=== PATIENT | female | born 1990 | race Caucasian/White ===

== ENCOUNTER 2024-12-15 17:13 | Inpatient (IN) | payer MEDICAID ==
[~2024-12-15] VITALS: Ht 170.2 cm; Wt 79.7 kg
--- NOTE | 2024-12-15 17:31 | Physician Documentation ---
History of Present Illness Chief Complaint: Abdominal Pain Stated Complaint: COLITIS COMPLICATIONS HPI 34-year-old female who presents due to concerns for an ulcerative colitis flare. She reports that she was diagnosed in [place], but then she moved here. She just last week got established with a primary care and has been referred to GI specialist Dr. Gonzalez. She is waiting for that appointment. In [place], her ulcerative colitis was treated with Remicade infusions, but she has not had those for 15 weeks. She just completed a course of steroids in early October. She denies chills or fever, notes lower abdominal pain, nausea Medication Reconciliation Allergies: Coded Allergies: No Known Allergies (Unverified , 12/15/24) Miscellaneous Medications Home Med List (No Home Medications), (Reported) Review of Systems ROS As stated above in the HPI, otherwise all systems are reviewed and negative. Constitutional: Denies: fever Gastrointestinal: Reports: abdominal pain, diarrhea, rectal bleeding Physical Exam Vital Signs: Temperature: 97.8, Source: Temporal, Heart Rate: 89, Respiratory Rate: 16, BP: 100/70, Pulse Oximetry: 99, Weight: 79.700 Oxygen Flow Rate: 0 Physical Exam General: Alert, no apparent distress. Neck: Full range of motion. Respiratory: Lungs clear, no respiratory distress. Chest: No accessory muscle use. Cardiovascular: Regular rate and rhythm, no murmurs. Gastrointestinal: Soft, TTP of lower abdomen, nondistended. Bowels sounds present. Extremities: Normal range of motion, no deformity. Neurologic: Oriented x4. Psychiatric: Normal mood and affect. Skin: Normal color, warm and dry. No edema, no ecchymosis. Progress Results/Orders Results/Orders Vital Signs 12/15/24 17:23 Temp 97.8 Pulse 89 Resp 16 B/P (MAP) 100/70 Pulse Ox 99 O2 Flow Rate 0 Consults/PCP Consults/PCP : Additional Comment Consult: I spoke to Dr. Menjivar, GI. She agrees with the admission for initiation of treatment. Consult: I spoke to the internal medicine service, for admission in the hospital Medical Decision Making Additional information obtaine: other Findings Spoke to friend, who is a nurse Differential Dx:Considerations: Appendicitis, Bowel obstruction, Inflammatory BD, Other Additional Comments Most Likely Diagnoses Ulcerative colitis flare/exacerbation: The most likely cause of lower abdominal pain and bloody diarrhea in a patient with known ulcerative colitis who is off infliximab for 15 weeks and recently tapered steroids is a disease flare. Flares are common after withdrawal of biologic or steroid therapy and typically present with bloody diarrhea, abdominal pain, and sometimes nausea, especially when the disease is active or undertreated.[1] Infectious bacterial colitis: Patients with ulcerative colitis are at increased risk for superimposed infectious colitis, particularly from pathogens such as Campylobacter, Salmonella, Shigella, and Shiga toxinproducing E. coli (STEC), all of which can cause bloody diarrhea and abdominal pain. The Infectious Diseases Society of [place] notes that visible blood in stool and abdominal pain are suggestive of these pathogens, even in the absence of fever.[2] Clostridioides difficile colitis: Immunosuppressed patients and those with recent healthcare exposure are at increased risk for C. difficile infection, which can present with watery or bloody diarrhea and abdominal pain. Even without recent antibiotics, C. difficile should be considered in any IBD patient with new or worsening diarrhea.[3] Ischemic colitis: Although less common in young adults, ischemic colitis can present with sudden-onset lower abdominal pain and bloody diarrhea. Risk is increased in patients with underlying vascular disease or hypotension, but IBD patients may be at higher risk due to chronic inflammation.[4] Medication-associated colitis: NSAIDs and antibiotics can cause colitis and bloody diarrhea, but this is less likely without recent use. Most Important Not to Miss Diagnoses Toxic megacolon: This is a life-threatening complication of severe ulcerative colitis, characterized by colonic distension and systemic toxicity. Although the absence of fever and chills makes this less likely, it must be ruled out with abdominal imaging and close monitoring for signs of toxicity (tachycardia, hypotension, altered mental status).[5] Colonic perforation with peritonitis: Perforation can occur in severe colitis or toxic megacolon. Signs include increasing abdominal pain, distension, peritonism, and systemic instability. CT imaging is essential if there is any clinical suspicion.[6] Assessment The patient presents with abdominal pain and rectal bleeding. She has a history of ulcerative colitis and is currently not on treatment. Her history and exam are all consistent with an ulcerative colitis flare. Her laboratory testing is reassuring, no acute anemia although she does have a mild leukocytosis. She was given IV fluids and nausea medicine. GI team was consulted as above. She will be admitted for initiation of treatment. Departure Impression: Primary Impression: Ulcerative colitis with rectal bleeding Referrals: NO PRIMARY CARE PROVIDER (PCP) Signature Scribe Signature: na Attestation: JAMEY Kelly NP Dec 15, 2024 17:31 ANUP GAMEZ MD Dec 15, 2024 19:26
[2024-12-15 17:49] LABS: MEAN PLATELET VOLUME 8.4 FL (7.4-10.4); RED CELL DISTRIBUTION WIDTH 13.4 % (11.5-14.5)
[2024-12-15] MEDS ORDERED: NO HOME MEDS (17:56)
[2024-12-15 18:04] LABS: CREATININE 0.74 MG/DL (0.40-0.90); TOTAL CARBON DIOXIDE 24.4 MMOL/L (24-32); eCRCL 106 ML/MIN; eGFR > 90 ML/MIN
[2024-12-15] MEDS: normal saline 1000ml 1,000 ML IV ONE ×2 (18:12→19:30)
[2024-12-15 18:35] LABS: LEUKOCYTE ESTERASE ,URINE NEGATIVE (Neg); NITRITES, URINE NEGATIVE (Neg); OCCULT BLOOD,URINE NEGATIVE (Neg); URINE HCG NEGATIVE (NEG)
[2024-12-15 18:36] LABS: UA COLLECTION TYPE CLN CATCH MIDSTREAM
[2024-12-15] MEDS ORDERED: ondansetron 4mg rapidly disintigrating tab PO PRN (19:55)
[2024-12-15] MEDS ORDERED: mag hydrox/Alum hydrox/simeth 30ml oral suspension PO PRN (19:55)
[2024-12-15] MEDS ORDERED: potassium Cl 20 mEq SR tablet PO PRN ×2 (19:55)
[2024-12-15] MEDS ORDERED: magnesium hydroxide 30ml (MOM) UD suspension PO PRN (19:55)
[2024-12-15] MEDS ORDERED: potassium Cl 40MEQ/1/2NS 520ml 520 ML IV PRN (19:55)
[2024-12-15] MEDS ORDERED: magnesium sulf-water 2g/50mL 50 ML IV PRN (19:55)
[2024-12-15] MEDS: normal saline 1000ml 1,000 ML IV SCH (19:55)
[2024-12-15] MEDS ORDERED: magnesium Cl slow-release 64mg tablet PO PRN (19:55)
[2024-12-15] MEDS ORDERED: ondansetron/PF 4mg/2ml inj IV PRN (19:55)
[2024-12-15] MEDS: K and/or MAG REPLACEMENT MC SCH (20:00)
[2024-12-15] MEDS: docusate sod 100mg capsule PO SCH (20:00)
[2024-12-15] MEDS: ondansetron/PF 4mg/2ml inj IV ONE (20:03)
[2024-12-15 20:28] LABS: INR 1.0 INR
[2024-12-15] MEDS: mesalamine 1.2gm ER tablet PO SCH (21:24)
[2024-12-15] MEDS: magnesium sulf-water 4G/100mL 100 ML IV PRN (21:33)
[2024-12-15] MEDS: methylPREDNISolone sod succ/PF 40mg inj. IV SCH (21:59)
[2024-12-15 23:00] VITALS: BP 105/61; PULSE 72; RESP 14; TEMP 97.6; O2SAT 99
[2024-12-15 23:00] LABS: % IRON SATURATION 8 % (11-46)
[2024-12-16] MEDS: heparin, porcine 5000 units/ml vial SQ SCH
--- NOTE | 2024-12-16 00:20 | HISTORY AND PHYSICAL-Residence ---
History & Physical Providers to CC Resident Creating Document: HERMES HOWARD, RES ~ History of Present Illness Reason for Admit\Complaint: Ulcerative Colitis Flare History of Present Illness 34 years old female with past medical history of ulcerative colitis came to ED with symptoms of diarrhea. Patient has a recent diagnosis of ulcerative colitis (August 2024) presents with a flare characterized by 45 daily episodes of loose, bloody stools with associated pus, 5/10 abdominal pain centered around the umbilicus and more prominent in the lower quadrants, intermittent bowel incontinence, and a sensation of incomplete evacuation. She reports a 12 lb unintentional weight loss and severe bilateral hip pain rated 8/10. All other review of systems is negative. She was previously hospitalized for similar symptoms and received Prednisone during hospital course, and Received two doses of infliximab. Upon discharge, she was prescribed oral steroids which later tappered and scheduled for outpatient infliximab infusions every 6 weeks. Her last infusion was on September 06. Since relocating from [place] to [place], she has not received further IBD treatment due to lack of follow-up with a field reporter or PCP. At other facility-CT abdomen and pelvis shows moderate acute colitis, focal fatty infiltration of liver 08/09/2024 - Colonoscopy: Inflammation was found in a continuous and circumferential pattern from rectum to hepatic flexure. 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 She used to smoke 7 cig/day but quit smoking after 2019 She was an Alcoholic and used to drink 10-20 Shots but quit smoking since 2021 She used to smoke marijuana, but quit smoking over an year History of cocaine abuse 4 years ago Patient able to ambulate without any assist ROS Constitutional: Reports: see HPI; Denies: fever Eyes: Reports: no symptoms reported ENT: Reports: no symptoms reported Respiratory: Reports: no symptoms reported Cardiovascular: Reports: no symptoms reported Gastrointestinal: Reports: abdominal pain (Patient reports abdominal pain around the umblicus more pronounced in RLQ), diarrhea (Patient reports 4-5 loose stools + Mixed with Blood+ associated with Incontience ), rectal bleeding (Patient reports Stool mixed with blood and pus ) Genitourinary: Reports: no symptoms reported Female Genitalia: Reports: no reported symptoms Neurological: Reports: no symptoms reported Musculoskeletal: Reports: pain (patient reports HIP pain 8/10 in intensity) Integumentary: Reports: other (redness and Acne all around the mouth) Allergic/Immunologic: Reports: no symptoms reported Hematologic/Lymphatic: Reports: no symptoms reported Endocrine: Reports: no symptoms reported Psychiatric: Reports: no symptoms reported Exam Vitals: Vital Signs Date Time Temp Pulse Resp B/P (MAP) Pulse Ox O2 Delivery O2 Flow Rate FiO2 12/15/24 19:40 98.3 75 103/67 (79) 100 0 12/15/24 17:39 16 General: GENERAL: Awake, alert, oriented. No acute distress. HEENT : Normocephalic, atraumatic, pupils equal and reactive to light, extraocular movements intact, no scleral icterus or conjunctival pallor,oral mucosa moist. NECK: neck is supple, trachea midline, no lymphadenopathy, no thyromegaly, no JV distention RESPIRATORY: Chest expansion equal bilaterally, breath sounds vesicular, no wheezes, or rhonchi. No use of accessory muscles, no tenderness on palpation. CARDIOVASCULAR: S1 and S2 heard, no murmurs, no rubs, or gallops ABDOMEN: Soft,Mild tender on palpation , nondistended, bowel sounds present and normoactive. No organomegaly, no palpable mass, no rebound or guarding NEUROLOGICAL: Alert, oriented, normal memory, speech is normal Cranial nerves II-XII- intact Motor strength 5/5 Sensation-intact in all extremities Reflexes +2 and symmetrical Coordination is intact EXTREMITIES: No Edema, peripheral pulses felt, no deformities Psychiatric:Appropriate mood and affect,No hallucinations or suicidal ideation Diagnostic Data Last Recorded Lab Results: 12/17/24 0350 12/17/24 0350 Diagnostic Data: Laboratory Tests Test 12/15/24 17:42 Prothrombin Time 10.7 SECONDS (9.0-12.0) INR International Normalized Ratio 1.0 INR Coagulation Comments Advance Care Planning Advanced Care plannin - 30 Minutes Additional Plan 34 years old female with past medical history of ulcerative colitis he is currently evaluated for IBD flare Diarrhea with Hematochezia 2/2 Ulcerative colitis flare Patient recently diagnosed with ulcerative colitis. patient reports 5-6 episodes of loose stools with bright red blood and pus in the stools At other facility-CT abdomen and pelvis shows moderate acute colitis, focal fatty infiltration of liver 08/09/2024 - Colonoscopy: Inflammation was found in a continuous and circumferential pattern from rectum to hepatic flexure. 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 Menjivar gastroenterology on Tuesday(12/19/2024). H&H-normal, ESR-normal, CRP-0.52 elevated, lactic acid normal Iron studies-low serum iron, low TIBC, low% saturation Started IV normal saline 100 cc/hour Started mesalamine 2.4 g p.o. daily and IV methylprednisone 60 mg IV daily Consulted field reporter Dr. Menjivar, appreciate recommendations F/p with Stool culture, Occult blood, daily Labs Bilateral hip pain possibly 2/2 enteropathic arthritis Differentials-sacroiliitis, fracture Vitals are stable ESR-normal, CRP elevated, WBC-13.5 Follow up with hip x-ray Code Status: Full DVT prophylaxis: Heparin Analgesia/Sedation: Morphine Line/tube: Peripheral Nutrition: Clear liquid PT: Ordered Prognosis: Guarded Disposition: Patient will be monitored in surgery, gastroenterology consult tomorrow. Hermes Howard PGY1-Internal Medicine Resident Date of Service: Dec 15, 2024 Billing Provider: VERITO LAL MD Addendum Attestation I agree with the residents assessment and plan as below: 34 year old female with recently diagnosed ulcerative colitis now admitted with GIB Plan: start IV steroids GI consult mIVF CCT 56 min using HIPPA compliant A/V technology HERMES HOWARD, RES Dec 16, 2024 00:20 VERITO LAL MD Dec 17, 2024 19:39
[2024-12-16 00:49] LABS: URINE AMPHETAMINE SCREEN NEGATIVE (Neg); URINE BARBITUATE SCREEN NEGATIVE (Neg); URINE BENZODIAZEPINES SCREEN NEGATIVE (Neg); URINE CANNABINOID SCREEN NEGATIVE (Neg); URINE COCAINE SCREEN NEGATIVE (Neg); URINE METHADONE SCREEN NEGATIVE (Neg); URINE OPIATE SCREEN NEGATIVE (Neg); URINE PHENCYCLIDINE SCREEN NEGATIVE (Neg)
--- NOTE | 2024-12-16 04:21 | RADIOLOGY REPORT ---
Procedure: DI HIP,BI,CMPLT(AP PELVIS) 12/15/2024 11:44 PM TECHNIQUE: Single view of the pelvis and 4 total views of the hips were obtained. Indication: HIP pain Comparison: None FINDINGS: Bones: No acute fracture or dislocation. Joint spaces are maintained. Soft tissues: Unremarkable. No radiopaque foreign body. IMPRESSION: 1. No acute osseous abnormality.
[2024-12-16 06:42] VITALS: BP 82/51; PULSE 87; RESP 16; TEMP 98.6; O2SAT 100
[2024-12-16 07:13] LABS: MEAN PLATELET VOLUME 8.7 FL (7.4-10.4); RED CELL DISTRIBUTION WIDTH 13.5 % (11.5-14.5)
[2024-12-16 07:45] LABS: CREATININE 0.52 MG/DL (0.40-0.90); TOTAL CARBON DIOXIDE 22.2 MMOL/L (24-32); eCRCL 151 ML/MIN; eGFR > 90 ML/MIN
[2024-12-16] MEDS: pantoprazole 40MG/NS 100ML BAG 100 ML IV SCH (09:03)
[2024-12-16] MEDS ORDERED: normal saline 500ml IV soln 500 ML IV ONE (09:15)
[2024-12-16] MEDS: normal saline 1000ml 1,000 ML IV ONE (10:03)
[2024-12-16 11:34] VITALS: BP 99/58; PULSE 77; RESP 16; TEMP 98.1; O2SAT 95
[2024-12-16] MEDS: iron sucrose complex injection 300 MG in normal saline 250ml IV soln 250 ML IV SCH (11:46)
--- NOTE | 2024-12-16 13:02 | CONSULTATION REPORT - RESIDENT ---
Consult Providers to CC Resident Creating Document: TESSASANTANAAydinRICKI MCINTOSH History of Present Illness Reason for Admit\Complaint: Acute flare of ulcerative colitis History of Present Illness This is a 34-year-old female with recent diagnosis of ulcerative colitis earlier this year in August when she had symptoms of bloody mucoid diarrhea. The colonoscopy and the biopsy showed inflammation in a continuous and circumferential pattern from rectum to hepatic flexure. Biopsy showed chronic colitis with focal mild neutrophilic cryptitis. She was treated with a combination of infliximab infusion and methylprednisolone during the time of her diagnosis. She was discharged with oral prednisone and infliximab infusion every 6 weeks once the disease was in remission. She has received 3 doses of infliximab till now and could not continue the infusion since she relocated from [place] to [place]. Currently she is having flare of UC with having 4-5 episodes of bloody mucoid stools associated with abdominal pain, 5/10, cramping type, intermittent, in the lower quadrant. She also gives history of significant weight loss. She has tried to modify diet with low fiber since the recent flare. Also complaining of bilateral severe hip pain, 8/10, no history of trauma. 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 She used to smoke 7 cig/day but quit smoking after 2019 She was an Alcoholic and used to drink 10-20 Shots but quit smoking since 2021 She used to smoke marijuana, but quit smoking over an year History of cocaine abuse 4 years ago Patient able to ambulate without any assist ROS ROS Constitutional: Reports: see HPI; Denies: fever Eyes: Reports: no symptoms reported ENT: Reports: no symptoms reported Respiratory: Reports: no symptoms reported Cardiovascular: Reports: no symptoms reported Gastrointestinal: Reports: abdominal pain (Patient reports abdominal pain around the umblicus more pronounced in RLQ), diarrhea (Patient reports 4-5 loose stools + Mixed with Blood+ associated with Incontience ), rectal bleeding (Patient reports Stool mixed with blood and pus ) Genitourinary: Reports: no symptoms reported Female Genitalia: Reports: no reported symptoms Neurological: Reports: no symptoms reported Musculoskeletal: Reports: pain (patient reports HIP pain 8/10 in intensity) Integumentary: Reports: other (redness and Acne all around the mouth) Allergic/Immunologic: Reports: no symptoms reported Hematologic/Lymphatic: Reports: no symptoms reported Endocrine: Reports: no symptoms reported Psychiatric: Reports: no symptoms reported Exam Vitals: Vital Signs Date Time Temp Pulse Resp B/P (MAP) Pulse Ox O2 Delivery O2 Flow Rate FiO2 12/16/24 11:34 98.1 77 16 99/58 (72) 95 Room Air 12/15/24 23:00 0.0 General: GENERAL: Awake, alert, oriented. Not in acute distress. HEENT : Normocephalic, atraumatic, pupils equal and reactive to light, extraocular movements intact, no scleral icterus or conjunctival pallor,oral mucosa moist. NECK: neck is supple, trachea midline, no lymphadenopathy, no thyromegaly, no JV distention RESPIRATORY: Chest expansion equal bilaterally, breath sounds vesicular, no wheezes, or rhonchi. No use of accessory muscles, no tenderness on palpation. CARDIOVASCULAR: S1 and S2 heard, no murmurs, no rubs, or gallops ABDOMEN: Soft,Mild tender on deep palpation , nondistended, bowel sounds present and normoactive. No organomegaly, no palpable mass, no rebound or guarding NEUROLOGICAL: Alert, oriented, normal memory, speech is normal Cranial nerves II-XII- intact Motor strength 5/5 Sensation-intact in all extremities Reflexes +2 and symmetrical Coordination is intact EXTREMITIES: No Edema, peripheral pulses felt, no deformities Psychiatric:Appropriate mood and affect,No hallucinations or suicidal ideation Diagnostic Data Last Recorded Lab Results: 12/16/2461312/16/24613 Diagnostic Data: Laboratory Tests Test 12/15/24 17:42 Prothrombin Time 10.7 SECONDS (9.0-12.0) INR International Normalized Ratio 1.0 INR Coagulation Comments Additional Plan Assessment: 34 years old female with recent diagnosis of ulcerative colitis is being evaluated and treated for acute flare of ulcerative colitis. Her complains of bilateral hip pain could be Sacroiliitis as an extraintestinal manifestation of ulcerative colitis or vitamin-D/calcium deficiencies due to malabsorption from ulcerative colitis or an orthopedic problem. Plan: Continue treatment with IV methylprednisolone 60 mg daily. Plan for outpatient IV infusion with infliximab since the patient had a good response during her last flare. Regular diet, no dietary or fiber restriction. H&H stable, CRP 0.52, ESR not elevated. Continue to monitor levels. For hip pain, can be managed with [place] if pain not controlled with IV methylprednisolone once the disease goes into remission. Management of iron deficiency on outpatient basis once uses in remission since the deficiency is not causing anemia. No Interventions required at this point. Akosua Maravilla. Internal Medicine, PGY 1 [facility]. Date of Service: Dec 16, 2024 Billing Provider: AVANI CARTER MD, SHIVANI, RES Dec 16, 2024 13:02
--- NOTE | 2024-12-16 17:41 | PROGRESS NOTE- Residence ---
Progress Note - Resident Providers to CC Resident Creating Document: FILIPE SCALES RES ~ Antibiotic Timeout Antibiotic Ordered?: No Subjective Patient was seen and examined at bedside reports no nausea vomiting or diarrhea she was eating comfortably Objective Vital Signs Date Time Temp Pulse Resp B/P (MAP) Pulse Ox O2 Delivery O2 Flow Rate FiO2 12/16/24 11:34 98.1 77 16 99/58 (72) 95 Room Air 12/15/24 23:00 0.0 Result Diagram: 12/16/2414 12/16/2414 GENERAL: Awake, alert, oriented. No acute distress. HEENT : Normocephalic, atraumatic, pupils equal and reactive to light, extraocular movements intact, no scleral icterus or conjunctival pallor,oral mucosa moist. NECK: neck is supple, trachea midline, no lymphadenopathy, no thyromegaly, no JV distention RESPIRATORY: Chest expansion equal bilaterally, breath sounds vesicular, no wheezes, or rhonchi. No use of accessory muscles, no tenderness on palpation. CARDIOVASCULAR: S1 and S2 heard, no murmurs, no rubs, or gallops ABDOMEN: Soft, non tender on palpation , nondistended, bowel sounds present and normoactive. No organomegaly, no palpable mass, no rebound or guarding NEUROLOGICAL: Alert, oriented, normal memory, speech is normal Cranial nerves II-XII- intact Motor strength 5/5 Sensation-intact in all extremities Reflexes +2 and symmetrical Coordination is intact EXTREMITIES: no cyanosis clubbing or edema Psychiatric:Appropriate mood and affect Coagulation Studies Laboratory Tests Test 12/15/24 17:42 Prothrombin Time 10.7 SECONDS (9.0-12.0) INR International Normalized Ratio 1.0 INR Coagulation Comments Advance Care Planning Advanced Care plannin - 30 Minutes Assessment Assessment The patient presents with abdominal pain and rectal bleeding. She has a history of ulcerative colitis and is currently not on treatment. Her history and exam are all consistent with an ulcerative colitis flare. Her laboratory testing is reassuring, no acute anemia although she does have a mild leukocytosis. She was given IV fluids and nausea medicine. GI team was consulted as above. She will be admitted for initiation of treatment. Plan Plan 34 years old female with past medical history of ulcerative colitis he is currently evaluated for IBD flare Diarrhea with Hematochezia 2/2 Ulcerative colitis flare Patient recently diagnosed with ulcerative colitis. patient reports 5-6 episodes of loose stools with bright red blood and pus in the stools At other facility-CT abdomen and pelvis shows moderate acute colitis, focal fatty infiltration of liver 08/09/2024 - Colonoscopy: Inflammation was found in a continuous and circumferential pattern from rectum to hepatic flexure. 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 Hgb: 11.5, Hct 35.9 WBC normal Iron studies-low serum iron, low TIBC, low% saturation CONTINUE NS 100 cc/hour Continue mesalamine 2.4 g p.o. 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 Menjivar gastroenterology on Tuesday(12/19/2024). Consulted GI who recommended, to Continue treatment with IV methylprednisolone 60 mg daily. Plan for outpatient IV infusion with infliximab since the patient had a good response during her last flare. Regular diet Bilateral hip pain possibly 2/2 enteropathic arthritis Differentials-sacroiliitis, fracture ESR-normal, CRP elevated, WBC-13.5 Hip x-ray: 1. No acute osseous abnormality Pain med as needed Code Status: Full DVT prophylaxis: Heparin Disposition: Possible discharge tomorrow with oral antibiotics and steroids. Filipe Scales PGY 1 IM Date of Service: Dec 16, 2024 Billing Provider: JOSSUE CLEMENTE MD,FILIPE, RES Dec 16, 2024 17:41
[2024-12-16 18:00] VITALS: BP 120/68; PULSE 73; RESP 15; TEMP 97.7; O2SAT 93
[2024-12-16 18:03] VITALS: RESP 16
[2024-12-16 20:00] VITALS: RESP 16
[2024-12-16 22:00] VITALS: BP 100/70; PULSE 95; RESP 16; TEMP 98.7; O2SAT 98
[2024-12-17 01:42] VITALS: O2SAT 98
[2024-12-17 04:40] LABS: CREATININE 0.67 MG/DL (0.40-0.90); TOTAL CARBON DIOXIDE 25.6 MMOL/L (24-32); eCRCL 117 ML/MIN; eGFR > 90 ML/MIN
[2024-12-17 04:44] LABS: MEAN PLATELET VOLUME 9.2 FL (7.4-10.4); RED CELL DISTRIBUTION WIDTH 13.4 % (11.5-14.5)
[2024-12-17 05:00] VITALS: BP 97/43; PULSE 57; RESP 14; TEMP 98.3; O2SAT 97
[2024-12-17] MEDS: normal saline 1000ML IV soln IVB ONE (06:44)
--- NOTE | 2024-12-17 10:30 | PROGRESS NOTE- Residence ---
Progress Note - Resident Providers to CC Resident Creating Document: AKOSUA MARAVILLA, RICKI ~ Central Line/PICC still needed: N\A [place]-Non Protocol [place] Indications Met/Not Met: F/C Indications Not Met Antibiotic Timeout Antibiotic Ordered?: No Subjective Patient was examined bedside. She reports feeling better. Tolerating regular diet w/o abd pain, N/V, diarrhea. No bowel movements since the past 48 hrs. Objective Vital Signs Date Time Temp Pulse Resp B/P (MAP) Pulse Ox O2 Delivery O2 Flow Rate FiO2 12/17/24 05:00 98.3 57 14 97/43 (61) 97 Room Air 12/17/24 01:42 0 21 Result Diagram: 12/17/24 0350 12/17/24 0350 GENERAL: Awake, alert, oriented. Not in acute distress. HEENT : Normocephalic, atraumatic, pupils equal and reactive to light, extraocular movements intact, no scleral icterus or conjunctival pallor,oral mucosa moist. NECK: neck is supple, trachea midline, no lymphadenopathy, no thyromegaly, no JV distention RESPIRATORY: Chest expansion equal bilaterally, breath sounds vesicular, no wheezes, or rhonchi. No use of accessory muscles, no tenderness on palpation. CARDIOVASCULAR: S1 and S2 heard, no murmurs, no rubs, or gallops ABDOMEN: Soft,Mild tender on deep palpation , nondistended, bowel sounds present and normoactive. No organomegaly, no palpable mass, no rebound or guarding NEUROLOGICAL: Alert, oriented, normal memory, speech is normal Cranial nerves II-XII- intact Motor strength 5/5 Sensation-intact in all extremities Reflexes +2 and symmetrical Coordination is intact EXTREMITIES: No Edema, peripheral pulses felt, no deformities Psychiatric:Appropriate mood and affect,No hallucinations or suicidal ideation Coagulation Studies Laboratory Tests Test 12/15/24 17:42 Prothrombin Time 10.7 SECONDS (9.0-12.0) INR International Normalized Ratio 1.0 INR Coagulation Comments Assessment Assessment Assessment: 34 years old female with recent diagnosis of ulcerative colitis is being evaluated and treated for acute flare of ulcerative colitis. Plan Plan Plan: Patient can be discharged with regular diet as tolerated and Prednisone 40 mg po daily. No need for C diff tests and precautions since the bloody mucoid diarrhea is due to UC flare and the patient did not have any bowel movement since the past 2 days. Discuss with case operator for outpatient IV infusion with infliximab every 6 weeks. H&H stable Management of iron deficiency on outpatient basis once uses in remission since the deficiency is not causing anemia. Akosua Maravilla. Internal Medicine, PGY 1 [facility]. Date of Service: Dec 17, 2024 Billing Provider: AVANI CARTER MD, SHIVANI, RES Dec 17, 2024 10:30
[2024-12-17] MEDS: pantoprazole 40mg Tablet.DR PO SCH (10:35)
[2024-12-17 11:02] VITALS: RESP 18
[2024-12-17 11:13] VITALS: BP 92/56; PULSE 84; RESP 17; TEMP 98.5; O2SAT 96
[2024-12-17] MEDS ORDERED: PRED10TA23 PO (11:51)
--- NOTE | 2024-12-17 18:54 | DISCHARGE SUMMARY-Residence ---
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 Patient has a recent diagnosis of ulcerative colitis (August 2024) presents with a flare characterized by 45 daily episodes of loose, bloody stools with associated pus, 5/10 abdominal pain centered around the umbilicus and more prominent in the lower quadrants, intermittent bowel incontinence, and a sensation of incomplete evacuation. She reports a 12 lb unintentional weight loss and severe bilateral hip pain rated 8/10. All other review of systems is negative. She was previously hospitalized for similar symptoms and received Prednisone during hospital course, and Received two doses of infliximab. Upon discharge, she was prescribed oral steroids which later tappered and scheduled for outpatient infliximab infusions every 6 weeks. Her last infusion was on September 06. Since relocating from [place] to [place], she has not received further IBD treatment due to lack of follow-up with a bracelet former or PCP. At other facility-CT abdomen and pelvis shows moderate acute colitis, focal fatty infiltration of liver 08/09/2024 - Colonoscopy: Inflammation was found in a continuous and circumferential pattern from rectum to hepatic flexure. Biopsy shows: Acute chronic colitis with focal mild neutrophilic cryptitis, negative for CMV Negative for granulomas and dysplasia Hospital course: 34-year-old female patient admitted to the hospital due to diarrhea. The patient states that he was recently diagnosed with a ulcerative colitis on August 2024. The patient states that she recently moved to [place] reason for which the patient was not able to continue her treatment for IV D due to lack of follow-up and bracelet former or PCP. Upon admission the patient was started on steroids due to the suspicion of ulcerative colitis flare-up, methylprednisolone 60 mg daily was started. Upon the following day the patient reported improvement of symptoms. Regular diet was restarted and reassurance of no restrictions in diet was given to the patient. GI was consulted due to the possibility of ulcerative colitis flare-up who recommended continue steroids. The patient initially also reported some hip pain which also improved with steroid treatment. The patient was advanced to regular diet, the patient tolerated diet. Did not have bowel movements for two days after starting fazal roids. The patient remained hemodynamically stable, the patient will be discharged with follow-up with a bracelet former with the appointment on Tuesday. Discharge course: The patient remained hemodynamically stable. The patient will be discharged with the following instructions: Come back to the emergency department or call 911 if severe diarrhea, chest pain, fever sensation, palpitations is evidenced. Take four tablets of prednisone 10 mg daily. Follow-up with Gastroenterology specialist Dr. Menjivar Tuesday at 3:30 p.m. Continue your regular diet, no restrictions recommended. Physical exam: GENERAL: Awake, alert, oriented. No acute distress. HEENT : Normocephalic, atraumatic, pupils equal and reactive to light, extraocular movements intact, no scleral icterus or conjunctival pallor,oral mucosa moist. NECK: neck is supple, trachea midline, no lymphadenopathy, no thyromegaly, no JV distention RESPIRATORY: Chest expansion equal bilaterally, breath sounds vesicular, no wheezes, or rhonchi. No use of accessory muscles, no tenderness on palpation. CARDIOVASCULAR: S1 and S2 heard, no murmurs, no rubs, or gallops ABDOMEN: Soft, non tender on palpation , nondistended, bowel sounds present and normoactive. No organomegaly, no palpable mass, no rebound or guarding NEUROLOGICAL: Alert, oriented, normal memory, speech is normal Cranial nerves II-XII- intact Motor strength 5/5 Sensation-intact in all extremities Reflexes +2 and symmetrical Coordination is intact EXTREMITIES: no cyanosis clubbing or edema Psychiatric:Appropriate mood and affect Vital Signs Date Time Temp Pulse Resp B/P (MAP) Pulse Ox O2 Delivery O2 Flow Rate FiO2 12/17/24 11:13 98.5 84 17 92/56 (68) 96 Room Air 12/17/24 11:02 0.0 12/17/24 01:42 21 Laboratory Tests Test 12/15/24 22:35 12/16/24 00:12 12/16/24 06:14 12/17/24 03:50 Iron Level 21 UG/DL Total Iron Binding Capacity 255 UG/DL Percent Iron Saturation 8 % Troponin I High Sensitivity 4 ng/L White Blood Count 8.8 X10'3 13.7 X10'3 Red Blood Count 4.08 X10'6 3.62 X10'6 Hemoglobin 11.5 g/dl 10.2 g/dl Hematocrit 33.8 % 30.3 % Mean Corpuscular Volume 82.7 FL 83.6 FL Mean Corpuscular Hemoglobin 28.3 PG 28.2 PG Mean Corpuscular Hemoglobin Concent 34.2 g/dL 33.8 g/dL Red Cell Distribution Width 13.5 % 13.4 % Platelet Count 303 X10'3 271 X10'3 Mean Platelet Volume 8.7 FL 9.2 FL Neutrophils (%) (Auto) 83.2 % 69.4 % Lymphocytes (%) (Auto) 14.2 % 21.2 % Monocytes (%) (Auto) 2.4 % 8.6 % Eosinophils (%) (Auto) 0 % 0.4 % Basophils (%) (Auto) 0.2 % 0.4 % Neutrophils # (Auto) 7.3 X10'3 9.5 X10'3 Lymphocytes # (Auto) 1.2 X10'3 2.9 X10'3 Monocytes # (Auto) 0.2 X10'3 1.2 X10'3 Eosinophils # (Auto) 0.0 X10'3 0.1 X10'3 Basophils # (Auto) 0.0 X10'3 0.1 X10'3 CBC Comment Sodium Level 140 MMOL/L 143 MMOL/L Potassium Level 3.9 MMOL/L 3.4 MMOL/L Chloride Level 109 MMOL/L 113 MMOL/L Carbon Dioxide Level 22.2 MMOL/L 25.6 MMOL/L Anion Gap 9 4 Blood Urea Nitrogen 7 MG/DL 10 MG/DL Creatinine 0.52 MG/DL 0.67 MG/DL Estimated GFR/1.73 m2 > 90 ML/MIN > 90 ML/MIN BUN/Creatinine Ratio 13.5 14.9 Glucose Level 123 MG/DL 95 MG/DL Calcium Level 8.3 MG/DL 7.6 MG/DL Total Bilirubin 0.6 MG/DL 0.3 MG/DL Aspartate Amino Transf (AST/SGOT) 15 U/L 8 U/L Alanine Aminotransferase (ALT/SGPT) 13 U/L 12 U/L Alkaline Phosphatase 79 IU/L 70 IU/L Total Protein 6.7 G/DL 5.4 G/DL Albumin 3.1 G/DL 2.6 G/DL Globulin 3.6 G/DL 2.8 G/DL Albumin/Globulin Ratio 0.9 0.9 Chemistry Comments Imaging: Hip/pelvis x-ray: No acute osseous abnormality. *Problems/Diagnosis: (1) Ulcerative colitis with rectal bleeding Status: Acute Total Time Spent on D/C: > 30 Minutes Date of Service: Dec 17, 2024 Billing Provider: JOSSUE CLEMENTE MD Problem Qualifiers (1) Ulcerative colitis with rectal bleeding: Ulcerative colitis location: unspecified ulcerative colitis location Qualified Codes: K51.911 - Ulcerative colitis, unspecified with rectal bleeding MARLEY VILLANUEVA, RES Dec 17, 2024 18:54
== END 2024-12-17 13:50 | disposition home or self-care (01) | DRG 245 ==
LOC: ER 17:14 → ED HOLD 20:05 → SUR 3N 22:10
PROVIDERS: ADMIT Internal Medicine; ATTEND Internal Medicine
DX: K51.911 Ulcerative colitis, unspecified with rectal bleeding (principal); M07.65 Enteropathic arthropathies, hip; M07.652 Enteropathic arthropathies, left hip
CPT/HCPCS: 36415; 73521; 80048; 80053; 80076; 80305; 81003; 81025; 83540; 83550; 83605; 83690; 84145; 84484; 85025; 85610; 85651; 86140; 87081; 96360; 99285; G0378; J1644; J1756; J2470; J2919; J7030; J7050